=== PATIENT | female | born 1955 | race Hispanic/Latino ===

== ENCOUNTER 2017-11-02 09:50 | Inpatient (IN) | payer OTHER ==
[2017-11-02 10:46] LABS: Hematocrit 30.2 % (30.3-42.9); Hemoglobin 9.5 gm/dl (10.1-14.3); Mean Corpuscular HGB Conc 32 % (30-34); Mean Corpuscular Volume 80 fl (79-97); Red Blood Count 3.77 M/mm3 (3.65-5.03); White Blood Count 3.2 K/mm3 (4.5-11.0)
[2017-11-02 10:53] LABS: Mean Corpuscular Hemoglobin 25 pg (28-32); Platelet Count 62 K/mm3 (140-440); Red Cell Distribution Width 25.3 % (13.2-15.2)
[2017-11-02 11:05] LABS: Alanine Aminotransferase 27 units/L (7-56); Albumin/Globulin Ratio 0.9 %; Alkaline Phosphatase 109 units/L (35-129); Anion Gap 18 mmol/L; BUN/Creatinine Ratio 17; Blood Urea Nitrogen 12 mg/dL (7-17); Calcium 8.7 mg/dL (8.4-10.2); Carbon Dioxide 23 mmol/L (22-30); Chloride 100.6 mmol/L (98-107); Glucose 306 mg/dL (65-100); Potassium 4.3 mmol/L (3.6-5.0); Sodium 137 mmol/L (137-145); Total Protein 6.2 g/dL (6.3-8.2)
[2017-11-02 11:43] LABS: Blastocytes % (Manual) 0 %
[2017-11-02 11:44] LABS: Anisocytosis 2+; Basophils % (Manual) 0 % (0.0-1.8); Diff Status Complete; Hypochromasia 1+; Ovalocytes Few; Platelet Estimate Consistent w Auto
[2017-11-02] MEDS ORDERED: CEPHULAC PO ONE (16:32)
--- NOTE | 2017-11-02 16:37 | Emergency Department Report ---
HPI - General Chief Complaint: Medical Clearance Time Seen by Provider: 11/02/17 16:20 - HPI HPI: This is a 62-year-old female presents to the emergency department from [place] with complaint of some generalized dizziness, weakness and just feeling ill. Patient has a history of stage IV cirrhosis and a history of some intermittent hyperammonemia. She has a history of hypertension. Patient says that she has not had most her medications for the past 4 days. She denies any vision change, slurred speech, chest pain, shortness of breath or fever. She has not taken anything for her symptoms prior to presentation. ED Past Medical Hx - Past Medical History Additional medical history: CIRRHOSIS. BACK PAIN- CHRONIC - Surgical History Additional Surgical History: NECK SURGERY - Social History Smoking Status: Never Smoker Substance Use Type: Prescribed - Medications Home Medications: Home Medications Medication Instructions Recorded Confirmed Last Taken Type Coreg 6.25 mg PO BID 11/02/17 11/02/17 Unknown History ED Review of Systems ROS: Stated complaint: DIZZY, WEAK, SICK Other details as noted in HPI Comment: All other systems reviewed and negative Constitutional: weakness. denies: chills, fever Eyes: denies: eye pain, eye discharge, vision change ENT: denies: ear pain, throat pain Respiratory: denies: cough, shortness of breath, wheezing Cardiovascular: denies: chest pain, palpitations Gastrointestinal: denies: abdominal pain, nausea, diarrhea Genitourinary: denies: urgency, dysuria, discharge Musculoskeletal: denies: back pain, joint swelling, arthralgia Skin: denies: rash, lesions Neurological: other (dizziness). denies: weakness Physical Exam - Physical Exam Vital Signs: Vital Signs 11/02/17 10:00 Temperature 98.7 F Pulse Rate 81 Respiratory 18 Rate Blood Pressure 155/57 O2 Sat by Pulse 97 Oximetry Physical Exam: GENERAL: The patient is well-developed well-nourished. HENT: Normocephalic. Atraumatic. Patient has moist mucous membranes. EYES: Extraocular motions are intact. Pupils equal reactive to light bilaterally. No nystagmus. NECK: Supple. Trachea is midline. CHEST/LUNGS: Clear to auscultation. There is no respiratory distress noted. HEART/CARDIOVASCULAR: Regular. There is no tachycardia. There is no gallop rub or murmur. ABDOMEN: Abdomen is soft, nontender. Patient has normal bowel sounds. There is no abdominal distention. SKIN: Skin is warm and dry. NEURO: The patient is awake, alert. The patient is cooperative. The patient has no focal neurologic deficits. The patient has normal speech. MUSCULOSKELETAL: There is no tenderness or deformity. There is no limitation range of motion. There is no evidence of acute injury. ED Course Vital Signs 11/02/17 10:00 Temperature 98.7 F Pulse Rate 81 Respiratory 18 Rate Blood Pressure 155/57 O2 Sat by Pulse 97 Oximetry ED Medical Decision Making - Lab Data Result diagrams: 11/02/17 10:26 11/02/17 10:26 - Medical Decision Making 62-year-old female presents from [place] with some generalized dizziness and/ or weakness. Found to have a ammonia level of greater than 100 with this history of cirrhosis. She also has some hyperglycemia but does not appear to be in diabetic ketoacidosis. I started off with lactulose and some subcutaneous insulin. She will be admitted to the hospitalist for further evaluation and treatment and has been accepted by Dr. Pate. - Differential Diagnosis hyperammonemia, psychosis, vertigo, dysrhythmia Critical Care Time: No Critical care attestation.: If time is entered above; I have spent that time in minutes in the direct care of this critically ill patient, excluding procedure time. ED Disposition Clinical Impression: Hyperammonemia, Dizziness Hypertension Qualifiers: Hypertension type: essential hypertension Qualified Code(s): I10 - Essential ( primary) hypertension Disposition: OP ADMIT IP TO THIS HOSP Is pt being admited?: Yes Condition: Stable Time of Disposition: 16:55
[2017-11-02] MEDS: HEPARIN SUB-Q SCH (21:35)
--- NOTE | 2017-11-02 23:55 | History and Physical Report ---
History of Present Illness Date of examination: 11/02/17 Date of admission: 11/02/17 18:26 Chief complaint: AMS History of present illness: See dictated H/p in reports Hepatic Encephalopathy Can br discharged back once Ammonia level is normal Medications and Allergies Allergies Allergy/AdvReac Type Severity Reaction Status Date / Time methylprednisolone Allergy Rash Verified 11/02/17 10:08 [From Medrol] SULFA Allergy Rash Uncoded 11/02/17 10:08 Home Medications Medication Instructions Recorded Confirmed Last Taken Type Coreg 6.25 mg PO BID 11/02/17 11/02/17 Unknown History Active Meds: Active Medications Heparin Sodium (Porcine) (Heparin) 5,000 unit SUB-Q Q8HR DARREL Last Admin: 11/02/17 21:35 Dose: 5,000 unit Exam - Constitutional Vitals: Temp Pulse Resp BP Pulse Ox 98.8 F 83 20 148/77 99 11/02/17 19:37 11/02/17 19:37 11/02/17 19:37 11/02/17 19:37 11/02/17 19:37 Results - Labs CBC & Chem 7: 11/02/17 10:26 11/03/17 05:33 Labs: Laboratory Last Values WBC 3.2 K/mm3 (4.5-11.0) L 11/02/17 10:26 RBC 3.77 M/mm3 (3.65-5.03) 11/02/17 10:26 Hgb 9.5 gm/dl (10.1-14.3) L 11/02/17 10:26 Hct 30.2 % (30.3-42.9) L 11/02/17 10:26 MCV 80 fl (79-97) 11/02/17 10:26 MCH 25 pg (28-32) L 11/02/17 10:26 MCHC 32 % (30-34) 11/02/17 10:26 RDW 25.3 % (13.2-15.2) H 11/02/17 10:26 Plt Count 62 K/mm3 (140-440) L 11/02/17 10:26 Add Manual Diff Complete 11/02/17 10:26 Total Counted 100 11/02/17 10:26 Seg Neuts % (Manual) 73.0 % (40.0-70.0) H 11/02/17 10:26 Band Neutrophils % 1.0 % 11/02/17 10:26 Lymphocytes % (Manual) 18.0 % (13.4-35.0) 11/02/17 10:26 Reactive Lymphs % (Man) 1.0 % 11/02/17 10:26 Monocytes % (Manual) 4.0 % (0.0-7.3) 11/02/17 10:26 Eosinophils % (Manual) 3.0 % (0.0-4.3) 11/02/17 10:26 Basophils % (Manual) 0 % (0.0-1.8) 11/02/17 10:26 Metamyelocytes % 0 % 11/02/17 10:26 Myelocytes % 0 % 11/02/17 10:26 Promyelocytes % 0 % 11/02/17 10:26 Blast Cells % 0 % 11/02/17 10:26 Nucleated RBC % Not Reportable 11/02/17 10:26 Seg Neutrophils # Man 2.3 K/mm3 (1.8-7.7) 11/02/17 10:26 Band Neutrophils # 0.0 K/mm3 11/02/17 10:26 Lymphocytes # (Manual) 0.6 K/mm3 (1.2-5.4) L 11/02/17 10:26 Abs React Lymphs (Man) 0.0 K/mm3 11/02/17 10:26 Monocytes # (Manual) 0.1 K/mm3 (0.0-0.8) 11/02/17 10:26 Eosinophils # (Manual) 0.1 K/mm3 (0.0-0.4) 11/02/17 10:26 Basophils # (Manual) 0.0 K/mm3 (0.0-0.1) 11/02/17 10:26 Metamyelocytes # 0.0 K/mm3 11/02/17 10:26 Myelocytes # 0.0 K/mm3 11/02/17 10:26 Promyelocytes # 0.0 K/mm3 11/02/17 10:26 Blast Cells # 0.0 K/mm3 11/02/17 10:26 WBC Morphology Not Reportable 11/02/17 10:26 Hypersegmented Neuts Not Reportable 11/02/17 10:26 Hyposegmented Neuts Not Reportable 11/02/17 10:26 Hypogranular Neuts Not Reportable 11/02/17 10:26 Smudge Cells Not Reportable 11/02/17 10:26 Toxic Granulation Not Reportable 11/02/17 10:26 Toxic Vacuolation Not Reportable 11/02/17 10:26 Dohle Bodies Not Reportable 11/02/17 10:26 Pelger-Huet Anomaly Not Reportable 11/02/17 10:26 Alfredo Rods Not Reportable 11/02/17 10:26 Platelet Estimate Consistent w auto 11/02/17 10:26 Clumped Platelets Not Reportable 11/02/17 10:26 Plt Clumps, EDTA Not Reportable 11/02/17 10:26 Large Platelets Not Reportable 11/02/17 10:26 Giant Platelets Not Reportable 11/02/17 10:26 Platelet Satelliting Not Reportable 11/02/17 10:26 Plt Morphology Comment Not Reportable 11/02/17 10:26 RBC Morphology Not Reportable 11/02/17 10:26 Dimorphic RBCs Not Reportable 11/02/17 10:26 Polychromasia Not Reportable 11/02/17 10:26 Hypochromasia 1+ 11/02/17 10:26 Poikilocytosis Not Reportable 11/02/17 10:26 Anisocytosis 2+ 11/02/17 10:26 Microcytosis Not Reportable 11/02/17 10:26 Macrocytosis Not Reportable 11/02/17 10:26 Spherocytes Not Reportable 11/02/17 10:26 Pappenheimer Bodies Not Reportable 11/02/17 10:26 Sickle Cells Not Reportable 11/02/17 10:26 Target Cells Not Reportable 11/02/17 10:26 Tear Drop Cells Not Reportable 11/02/17 10:26 Ovalocytes Few 11/02/17 10:26 Helmet Cells Not Reportable 11/02/17 10:26 [place] Bodies Not Reportable 11/02/17 10:26 Lavinia Rings Not Reportable 11/02/17 10:26 Oil Trough Cells Not Reportable 11/02/17 10:26 Bite Cells Not Reportable 11/02/17 10:26 Crenated Cell Not Reportable 11/02/17 10:26 Elliptocytes Not Reportable 11/02/17 10:26 Acanthocytes (Spur) Not Reportable 11/02/17 10:26 Rouleaux Not Reportable 11/02/17 10:26 Hemoglobin C Crystals Not Reportable 11/02/17 10:26 Schistocytes Not Reportable 11/02/17 10:26 Malaria parasites Not Reportable 11/02/17 10:26 Rafal Bodies Not Reportable 11/02/17 10:26 Hem Pathologist Commnt No 11/02/17 10:26 Sodium 137 mmol/L (137-145) 11/02/17 10:26 Potassium 4.3 mmol/L (3.6-5.0) 11/02/17 10:26 Chloride 100.6 mmol/L (98-107) 11/02/17 10:26 Carbon Dioxide 23 mmol/L (22-30) 11/02/17 10:26 Anion Gap 18 mmol/L 11/02/17 10:26 BUN 12 mg/dL (7-17) 11/02/17 10:26 Creatinine 0.7 mg/dL (0.7-1.2) 11/02/17 10:26 Estimated GFR > 60 ml/min 11/02/17 10:26 BUN/Creatinine Ratio 17 % 11/02/17 10:26 Glucose 306 mg/dL (65-100) H 11/02/17 10:26 POC Glucose 158 (70-105) H 11/02/17 22:22 Calcium 8.7 mg/dL (8.4-10.2) 11/02/17 10:26 Total Bilirubin 1.40 mg/dL (0.1-1.2) H 11/02/17 10:26 AST 43 units/L (5-40) H 11/02/17 10:26 ALT 27 units/L (7-56) 11/02/17 10:26 Alkaline Phosphatase 109 units/L (35-129) 11/02/17 10:26 Ammonia 102.0 umol/L (25-60) H 11/02/17 10:26 Total Protein 6.2 g/dL (6.3-8.2) L 11/02/17 10:26 Albumin 3.0 g/dL (3.9-5) L 11/02/17 10:26 Albumin/Globulin Ratio 0.9 % 11/02/17 10:26
[2017-11-03] MEDS: PERCOCET 5/325 PO PRN ×2 (01:45→10:12)
[2017-11-03] MEDS ORDERED: TYLENOL PO PRN (02:02)
[2017-11-03] MEDS ORDERED: DULCOLAX PR PRN (02:02)
[2017-11-03] MEDS ORDERED: MILK OF MAGNESIA PO PRN (02:02)
[2017-11-03] MEDS ORDERED: ZOFRAN IV PRN (02:02)
[2017-11-03] MEDS ORDERED: CEPHULAC PO PRN (02:06)
[2017-11-03] MEDS ORDERED: NACL 0.9% 1000 ML 1,000 ML IV SCH (03:00)
[2017-11-03 06:13] LABS: Alanine Aminotransferase 27 units/L (7-56); Albumin 2.9 g/dL (3.9-5); Alkaline Phosphatase 102 units/L (35-129); Anion Gap 18 mmol/L; BUN/Creatinine Ratio 17; Blood Urea Nitrogen 10 mg/dL (7-17); Calcium 8.7 mg/dL (8.4-10.2); Carbon Dioxide 21 mmol/L (22-30); Chloride 102.8 mmol/L (98-107); Glucose 127 mg/dL (65-100); Potassium 3.9 mmol/L (3.6-5.0); Sodium 138 mmol/L (137-145); Total Protein 5.9 g/dL (6.3-8.2)
[2017-11-03] MEDS: HEPARIN SUB-Q SCH ×2 (06:59→13:35)
[2017-11-03] MEDS: COREG PO SCH ×2 (07:00→10:12)
[2017-11-03 08:07] VITALS: BP 128/84
--- NOTE | 2017-11-03 09:00 | History and Physical Report ---
CHIEF COMPLAINT: 1. Feeling weak and dizzy. 2. Increased ammonia level. HISTORY OF PRESENT ILLNESS: A 62-year-old female sent from [place] for increased ammonia level, feeling weak and dizzy. The patient has stage 4 cirrhosis and has history of intermittent hyperammonemia. The patient also has hypertension. The patient has been having some dizziness and weakness. PAST MEDICAL HISTORY: Significant for cirrhosis, back pain. PAST SURGICAL HISTORY: Neck surgery. SOCIAL HISTORY: Does not smoke: Alcohol dependence in the past. CURRENT MEDICATIONS: Coreg 6.25 twice a day. REVIEW OF SYSTEMS: CONSTITUTIONAL: Significant for feeling weak and dizzy and unsteady. HEENT: No sore throat, no postnasal drip. CARDIOVASCULAR AND RESPIRATORY: No shortness of breath, no chest pain, no palpitations. GASTROINTESTINAL: No nausea, no vomiting, no diarrhea. MUSCULOSKELETAL: No joint pains. GENITOURINARY: No dysuria, no flank pain. CENTRAL NERVOUS SYSTEM: Slightly altered sensorium present. Also, unsteady gait. NEUROLOGIC: No focal deficits. SKIN: No rashes. No yellowness. A 14-point review of systems done. Otherwise, negative. Other than the dizziness and unsteadiness and feeling weak. PHYSICAL EXAMINATION: GENERAL: Elderly female, cooperative during examination. VITAL SIGNS: Temperature is 98.7, pulse is 81, respirations are 18. HEENT: Unremarkable. Pupils equal and reactive. NECK: Supple, no lymphadenopathy, no thyromegaly. LUNGS: Clear to auscultation and percussion. Good air entry. CARDIOVASCULAR: S1, S2 heard. No gallop, no murmur, no rub. Apical impulse in left fifth intercostal space and midclavicular line. ABDOMEN: Soft and benign. No hepatosplenomegaly. No guarding, no rigidity. Hernial orifices are normal. EXTREMITIES: Good pedal pulses. No pedal edema. CENTRAL NERVOUS SYSTEM: Slightly altered sensorium. Otherwise, no focal deficits. SKIN: Normal. LABORATORY DATA: White count is 3200, hemoglobin of 9.5, hematocrit is 30.2, platelet count is 62. BUN and creatinine is 12 and 0.7. Ammonia level is 102, total protein is 6.2, albumin is 3.0. Glucose is 306. CAT scan is negative. ASSESSMENT AND PLAN: 1. Hepatic encephalopathy, treated with lactulose. Ammonia level is not that high. Once the ammonia level comes back to normal the patient may be sent back to [place]. 2. Hypertension. Continue Coreg 6.25 twice a day. 3. Malnutrition, moderate. Dietary consult requested. 4. 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 The patient has a platelet count of 62. Iron studies not ordered. The patient has nutritional anemia. The patient to take iron and folic acid and B12 on a regular basis. 5. Deep venous thrombosis prophylaxis, Lovenox 40 mg subcutaneous daily. JOB# [id number] VSM/NTS
[2017-11-03] MEDS ORDERED: Fluarix Quad 2017-2018(36 MOS+ IM ONE (12:00)
--- NOTE | 2017-11-03 12:40 | Discharge Summary ---
Providers - Providers Date of Admission: 11/02/17 18:26 Date of discharge: 11/03/17 Attending physician: STACIE OWENS Hospitalization Condition: Good Hospital course: Patient presented from [facility] in what appeared to be toxic metabolic encephalopathy. Patient was found to have an elevated ammonia level of 100. This is also happen in the past. Patient states her thinks she is having an acute exacerbation of her bipolar disorder but it is actually metabolic encephalopathy. Patient was hydrated and ammonia level came back down to normal. Patient was also alert and oriented 3 back to baseline. No evidence of encephalopathy. Disposition: [id number]/TX-[facility] PSY HOSP/PSY UNIT - Discharge Diagnoses (1) Hyperammonemia Status: Acute Comment: Patient ammonia level back to normal encephalopathy has resolved. We'll discharge back to psychiatric facility today. Core Measure Documentation - Palliative Care Palliative Care/ Comfort Measures: Not Applicable - Core Measures Any of the following diagnoses?: none Exam - Constitutional Vitals: Temp Pulse Resp BP Pulse Ox 98.7 F 88 20 128/84 96 11/03/17 07:51 11/03/17 10:12 11/03/17 07:51 11/03/17 10:12 11/03/17 07:51 General appearance: Present: no acute distress, well-nourished - EENT Eyes: Present: PERRL ENT: hearing intact, clear oral mucosa - Neck Neck: Present: supple, normal ROM - Respiratory Respiratory effort: normal Respiratory: bilateral: CTA - Cardiovascular Heart Sounds: Present: S1 & S2. Absent: rub, click - Extremities Extremities: pulses symmetrical, No edema Peripheral Pulses: within normal limits - Abdominal General gastrointestinal: Present: soft, non-tender, non-distended, normal bowel sounds Female genitourinary: Present: normal - Integumentary Integumentary: Present: clear, warm, dry - Musculoskeletal Musculoskeletal: gait normal, strength equal bilaterally - Psychiatric Psychiatric: appropriate mood/affect, intact judgment & insight - Neurologic Neurologic: CNII-XII intact, moves all extremities Plan Activity: no restrictions Weight Bearing Status: Full Weight Bearing Diet: low salt Follow up with: KENA MACHUCA MD [Other] - 3-5 Days Prescriptions: Coreg 6.25 mg PO BID #60 Lactulose [Cephulac] 20 gm PO Q6H PRN #7 oral.liqd PRN Reason: Constipation oxyCODONE /ACETAMINOPHEN [Percocet 5/325 mg] 1 tab PO Q4H PRN #10 tablet PRN Reason: Pain, Moderate (4-6)
== END 2017-11-03 16:28 | DRG 441 ==
LOC: ED 09:50 → 3A 18:26
PROVIDERS: ADMIT Internal Medicine; ATTEND Internal Medicine
PROC: 3E0234Z Introduction of Serum, Toxoid and Vaccine into Muscle, Percutaneous Approach (ICD-10-PCS; principal; 2017-11-03)
DX: K72.90 Hepatic failure, unspecified without coma (principal); G93.41 Metabolic encephalopathy; E72.20 Disorder of urea cycle metabolism, unspecified; I10 Essential (primary) hypertension; G89.29 Other chronic pain; M54.9 Dorsalgia, unspecified; E44.0 Moderate protein-calorie malnutrition; D64.9 Anemia, unspecified; Z23 Encounter for immunization; Z79.899 Other long term (current) drug therapy; Z68.38 Body mass index [BMI] 38.0-38.9, adult
CPT/HCPCS: 36415; 80053; 82140; 82962; 85007; 85025; 90686; 93005; 93010; 96372; J1644; J7030